=== PATIENT | female | born 1975 | race Hispanic/Latino ===

== ENCOUNTER 2019-10-22 17:56 | Emergency (ER) | payer BC, OTHER ==
[~2019-10-22 17:56] MED LIST: HYDR-3707 PO; MORP4SYR IV
[2019-10-22] MEDS ORDERED: KETOROLAC TROMETHAMINE 30MG/ML ONE (19:25)
== END 2019-10-22 19:48 | disposition home or self-care (01) ==
LOC: EDH 17:56
DX: M54.5 Low back pain (principal); Z90.49 Acquired absence of other specified parts of digestive tract; Z90.710 Acquired absence of both cervix and uterus; Z88.8 Allergy status to other drugs, medicaments and biological substances; V49.40XA Driver injured in collision with unspecified motor vehicles in traffic accident, initial encounter; Y93.89 Activity, other specified; Y92.89 Other specified places as the place of occurrence of the external cause; Y99.8 Other external cause status
CPT/HCPCS: 96372; 99283; J1885